=== PATIENT | female | born 2000 | race Hispanic/Latino ===

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

== ENCOUNTER 2022-10-13 18:11 | Observation (INO) | payer MEDICAID ==
[~2022-10-13] VITALS: Ht 165.1 cm; Wt 54.4 kg
[2022-10-13 18:34] VITALS: PULSE 122; RESP 20; O2SAT 99
[2022-10-13 19:00] LABS: RAPID GROUP A STREP negative (NEGATIVE)
[2022-10-13 19:01] LABS: SARS-CoV-2, RNA, NAAT NEGATIVE SARS CoV-2 (NEGATIVE)
[2022-10-13 19:08] LABS: INFLUENZA TYPE A Negative For Type A (NEGATIVE); INFLUENZA TYPE B Negative For Type B (NEGATIVE)
[2022-10-13 19:16] LABS: APPEARANCE,URINE CLOUDY (CLEAR); BILIRUBIN,URINE NEGATIVE (NEGATIVE); COLOR,URINE YELLOW (YELLOW); GLUCOSE, URINE (UA) NEGATIVE (NEGATIVE); KETONES,URINE 150 mg/dL (NEGATIVE); LEUKOCYTE ESTERASE ,URINE 500 Leu/uL (NEGATIVE); NITRATE,URINE 2+ (NEGATIVE); OCCULT BLOOD,URINE SMALL (NEGATIVE); PROTEIN,URINE 70 mg/dL (NEGATIVE); UROBILINOGEN,URINE 3 mg/dL (0.2-1.0)
[2022-10-13 19:17] LABS: ADD UA MICROSCOPIC YES
[2022-10-13 19:22] LABS: BACTERIA,URINE MOD /HPF (None Seen); MUCUS,URINE MOD LPF (None Seen); SQUAMOUS EPITHELIAL CELL,UR MANY /HPF (0-2); WBC,URINE TNTC /HPF (0-1)
[2022-10-13 19:23] LABS: AMPHET/METH SCREEN,URINE NEGATIVE (NEGATIVE); BARBITURATE SCREEN, URINE NEGATIVE (NEGATIVE); BENZODIAZEPINES SCREEN,URINE NEGATIVE (NEGATIVE); CANNABINOID SCREEN,URINE NEGATIVE (NEGATIVE); COCAINE SCREEN,URINE NEGATIVE (NEGATIVE); OPIATE SCREEN,URINE NEGATIVE (NEGATIVE); PHENCYCLIDINE SCREEN,URINE NEGATIVE (NEGATIVE)
[2022-10-13] MEDS ORDERED: LACTATED RINGERS 1000ML 1,000 ML IV ONE (19:54)
[2022-10-13 20:02] VITALS: BP 106/59
[2022-10-13] MEDS ORDERED: CEFTRIAXONE 1G VIAL IVPB ONE (20:30)
[2022-10-13] MEDS ORDERED: ACETAMINOPHEN 325 MG TAB PO PRN (20:30)
[2022-10-13] MEDS ORDERED: ACETAMINOPHEN 500 MG TABLET PO ONE (20:30)
[2022-10-13 20:51] VITALS: TEMP 99.6
[2022-10-13] MEDS: LACTATED RINGERS 1000ML 1,000 ML IV PRN (21:39)
[2022-10-13 21:41] LABS: BASOPHILS # (AUTO) 0.04 K/uL (0.00-0.20); BASOPHILS % (AUTO) 0.3 % (0.0-5.0); EOSINOPHILS # (AUTO) 0.01 K/uL (0.00-0.70); EOSINOPHILS % (AUTO) 0.1 % (0.0-8.0); HEMATOCRIT 28.9 % (36-48); LYMPHOCYTES % (AUTO) 7.9 % (21.0-51.0); MEAN CORPUSCULAR HEMOGLOBIN 28.1 pg (27.0-33.0); MEAN CORPUSCULAR HGB CONC 32.5 g/dL (32.0-36.0); MEAN CORPUSCULAR VOLUME 86.3 fL (79-99); MONOCYTES # (AUTO) 1.4 K/uL (0.1-1.0); MONOCYTES % (AUTO) 10.7 % (3.0-13.0); NEUTROPHILS # (AUTO) 10.2 K/uL (1.8-7.7); NEUTROPHILS % (AUTO) 80.2 % (40.0-77.0); PLATELET COUNT (AUTO) 165 K/uL (130-400); RED BLOOD CELL COUNT(AUTO) 3.35 MIL/uL (4.00-5.50); RED CELL DISTRIBUTION WIDTH 13.8 % (11.0-15.5); WHITE BLOOD COUNT (AUTO) 12.8 K/uL (4.8-10.8)
[2022-10-14] MEDS: LACTATED RINGERS 1000ML 1,000 ML IV PRN ×3 (00:35→16:07)
[2022-10-14] MEDS ORDERED: TERBUTALINE SULFATE VIAL 1MG/ML SQ ONE (01:36)
[2022-10-14] MEDS: TERBUTALINE SULFATE VIAL 1MG/ML SQ PRN ×2 (01:51→02:16)
[2022-10-14 10:53] LABS: RAPID PLASMA REAGIN NONREACTIVE (NONREACTIVE)
[2022-10-14] MEDS ORDERED: CEFTRIAXONE 1G VIAL IVPB ONE (16:00)
== END 2022-10-14 17:53 | disposition home or self-care (01) ==
LOC: EDH 18:11 → LDH 18:12
PROVIDERS: ADMIT Internal Medicine; ATTEND Internal Medicine
DX: O26.893 Other specified pregnancy related conditions, third trimester (principal); R10.2 Pelvic and perineal pain; R50.9 Fever, unspecified; R42 Dizziness and giddiness; Z20.822 Contact with and (suspected) exposure to COVID-19; O99.891 Other specified diseases and conditions complicating pregnancy; M54.9 Dorsalgia, unspecified; Z3A.32 32 weeks gestation of pregnancy
CPT/HCPCS: 96361 ×4; 96365; 80305; 85025; 86592; 86850; 86900; 86901; 87077; 87088; 87186; 87880; 87804 ×2; 86701; 87390; 81001; 36415; 87635; 96366; 96372; 76805; G0378 ×22; J7120 ×3; J0696 ×2; J3105; 96360